=== PATIENT | male | born 1985 | race Caucasian/White ===

== ENCOUNTER 2020-07-27 07:05 | Day surgery (SDC) | payer OTHER ==
[2020-07-24 11:07] VITALS: BMI 25.7
[2020-07-27] MEDS ORDERED: ROPIVACAINE HCL 0.5% 30ML VIAL ONE (08:13)
[2020-07-27] MEDS ORDERED: DEXAMETHASONE SOD PHOSPHATE/PF 10 MG/ML SDV ONE (08:13)
[2020-07-27] MEDS ORDERED: MIDAZOLAM HCL 2 MG/2 ML SINGLE DOSE VIAL ONE ×3 (08:13→08:59)
[2020-07-27] MEDS ORDERED: ceFAZolin SODIUM 1 GM VIAL ONE (10:17)
[2020-07-27] MEDS ORDERED: DEXAMETHASONE SOD PHOSPHATE 4 MG/1 ML VIAL ONE (10:17)
[2020-07-27] MEDS ORDERED: KETOROLAC TROMETHAMINE 30 MG/1 ML VIAL ONE (10:17)
[2020-07-27] MEDS ORDERED: ONDANSETRON 4 MG/2 ML VIAL ONE (10:17)
[2020-07-27 11:46] VITALS: TEMP 97.8
[2020-07-27 11:50] VITALS: BP 164/94; PULSE 92
== END 2020-07-27 11:30 | disposition home or self-care (01) ==
LOC: FASU 07:05
PROVIDERS: ATTEND Orthopaedic Surgery
PROC: 0RNK4ZZ Release Left Shoulder Joint, Percutaneous Endoscopic Approach (ICD-10-PCS; 2020-07-27)
PROC: 0PBB4ZZ Excision of Left Clavicle, Percutaneous Endoscopic Approach (ICD-10-PCS; principal; 2020-07-27 09:57)
DX: M19.012 Primary osteoarthritis, left shoulder (principal); M75.42 Impingement syndrome of left shoulder; M65.812 Other synovitis and tenosynovitis, left shoulder; M24.112 Other articular cartilage disorders, left shoulder
CPT/HCPCS: 88304-TC